=== PATIENT | female | born 1955 | race African-American/Black ===

== ENCOUNTER 2016-09-27 08:55 | Outpatient (CLI) | payer BC | END 2016-09-27 20:24 | disposition home or self-care (01) | LOC: SMA 08:55 | PROVIDERS: ATTEND Obstetrics & Gynecology | DX: Z12.31 Encounter for screening mammogram for malignant neoplasm of breast (principal) | CPT/HCPCS: 77067; G0202 ==

== ENCOUNTER 2017-10-20 10:33 | Outpatient (CLI) | payer BC | END 2017-10-20 20:01 | disposition home or self-care (01) | LOC: SMA 10:33 | PROVIDERS: ATTEND Obstetrics & Gynecology | DX: Z12.31 Encounter for screening mammogram for malignant neoplasm of breast (principal) | CPT/HCPCS: 77067 ==

== ENCOUNTER 2018-11-10 13:00 | Outpatient (CLI) | payer BC | END 2018-11-11 07:58 | disposition home or self-care (01) | LOC: SMA 13:00 | PROVIDERS: ATTEND Obstetrics & Gynecology | DX: Z12.31 Encounter for screening mammogram for malignant neoplasm of breast (principal) | CPT/HCPCS: 77067 ==

== ENCOUNTER 2018-11-30 09:35 | Outpatient (CLI) | payer BC | END 2018-11-30 21:10 | disposition home or self-care (01) | LOC: SMA 09:35 | PROVIDERS: ATTEND Obstetrics & Gynecology | DX: R92.8 Other abnormal and inconclusive findings on diagnostic imaging of breast (principal) | CPT/HCPCS: 76642; 77065 ==

== ENCOUNTER 2020-03-02 12:00 | Outpatient (CLI) | payer BC | END 2020-03-02 19:47 | disposition home or self-care (01) | LOC: SMA 12:00 | PROVIDERS: ATTEND Obstetrics & Gynecology | DX: Z12.31 Encounter for screening mammogram for malignant neoplasm of breast (principal); N63.20 Unspecified lump in the left breast, unspecified quadrant; N64.89 Other specified disorders of breast | CPT/HCPCS: 77067 ==